=== PATIENT | male | born 1960 ===

== ENCOUNTER 2023-05-30 23:59 | Outpatient (BNV) | payer OTHER, SELFPAY | END 2023-06-04 23:59 | PROVIDERS: PCP Nurse Practitioner Family; Visit Provider Internal Medicine | DX: I48.91 Unspecified atrial fibrillation (principal); I25.5 Ischemic cardiomyopathy; Z01.810 Encounter for preprocedural cardiovascular examination | CPT/HCPCS: 99223 ==